=== PATIENT | male | born 1985 | race Two or more races ===

== ENCOUNTER 2016-07-29 17:44 | Emergency (ER) | payer OTHER, BC ==
[2016-07-29 17:55] VITALS: BP 165/107
[2016-07-29] MEDS ORDERED: BACITRACIN ZINC OINTMENT 15 GM TP ONE (18:37)
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
== END 2016-07-29 19:25 | disposition home or self-care (01) ==
LOC: ER 17:44
DX: S93.491A Sprain of other ligament of right ankle, initial encounter (principal); S50.812A Abrasion of left forearm, initial encounter; V89.2XXA Person injured in unspecified motor-vehicle accident, traffic, initial encounter
CPT/HCPCS: 99283; J3490

== ENCOUNTER 2017-12-23 15:31 | Emergency (ER) | payer BC, OTHER ==
--- NOTE | 2017-12-23 15:59 | ER Document Report ---
HPI - HPI Pain Level: 4 Notes: Patient is a 32-year-old male with a history of hypertension and chronic right ankle pain who presents to the ED complaining of swelling and pain to his right knee as well as pain posteriorly feels like a pulled muscle without known injury. Patient states that he has been sleeping in his car for 20-30 minutes at a time over the last few days [place] which is when he started noticing his knee soreness. Patient states that he is now at the point where he cannot completely straighten his leg nor can he flex it to 90 because of the swelling and the pain. Patient states he does have some pain associated with weightbearing. He has not noticed any redness or abscess formation. He has not noticed any purulent discharge or streaks. He is eating and drinking without any difficulties. He is urinating normally and having normal bowel movements. No smoking or IV drug use. Denies any headache, fever, URI, sore throat, chest pain, palpitations, syncope, cough, shortness of breath, wheeze, dyspnea, abdominal pain, nausea/vomiting/diarrhea, urinary retention, dysuria, hematuria, loss of control of bowel or bladder, numbness/tingling, saddle anesthesia, muscle paralysis/weakness, or rash. - ROS Systems Reviewed and Negative: Yes All other systems reviewed and negative Past Medical History - Social History Smoking Status: Never Smoker Family History: Reviewed & Not Pertinent Renal/ Medical History: Denies: Hx Peritoneal Dialysis - Immunizations Hx Diphtheria, Pertussis, Tetanus Vaccination: Yes Vertical Provider Document - CONSTITUTIONAL Agree With Documented VS: Yes Notes: PHYSICAL EXAMINATION: GENERAL: Well-appearing, well-nourished and in no acute distress. LUNGS: Breath sounds clear to auscultation bilaterally and equal. No wheezes rales or rhonchi. HEART: Regular rate and rhythm without murmurs, rubs, gallops. Musculoskeletal: Rt knee: + effusion noted. No obvious swelling, warmth, erythema, ecchymosis, or deformity. LROM to passive/active. Strength 5+/5. N/ V intact distal. + tenderness to the bilateral joint line and posterior knee. I could not adequate assess the ligaments/cartilage due to LROM. No foot drop. Compartments are soft otherwise. Extremities: No cyanosis, clubbing, or edema b/l. Peripheral pulses 2+. Capillary refill less than 3 seconds. Sharlene neg b/l. NEUROLOGICAL: Normal speech, limping gait. see above. PSYCH: Normal mood, normal affect. SKIN: Warm, Dry, normal turgor, no rashes or lesions noted. - INFECTION CONTROL TRAVEL OUTSIDE OF THE [place] IN LAST 30 DAYS: No Course - Re-evaluation Re-evalutation: 12/23/17 15:58 We will obtain an XR and doppler. 12/23/17 19:14 Patient is an afebrile, well-hydrated 32-year-old male who presents to the ED with right knee pain and joint effusion. Vitals are acceptable without any significant tachycardia, tachypnea, or hypoxia. PE is otherwise unremarkable for any neurovascular compromise, obvious tendon/ligament rupture, obvious fracture/dislocation, septic joint, DVT. X-ray and venous Doppler were unremarkable for any acute pathology aside from the joint effusion. No further labs or imaging warranted at this time based on H&P. Crutches and knee immobilizer given. Advised patient that he needs to call orthopedics tomorrow to schedule appointment for further evaluation and management. I will send him home with a prescription for naproxen. Conservative measures otherwise for symptoms. Recheck with your PCM next week as well. Return to the ED with any worsening/concerning symptoms otherwise as reviewed in discharge. Patient is in agreement. Discharge - Discharge Clinical Impression: Right knee pain Qualifiers: Chronicity: acute Qualified Code(s): M25.561 - Pain in right knee Condition: Stable Disposition: HOME, SELF-CARE Instructions: Ice & Elevation ([facility]), Use of Crutches ([facility]), Knee Immobilizing Splint ([facility]) Additional Instructions: Rest, Ice, Compression, Elevation Use crutches/splint as directed Tylenol/ibuprofen as needed Light stretches daily Strength exercises as able Moist heat and massage may help F/u with your PCP in 3-5 days for a recheck Call orthopedics tomorrow to schedule an appointment for further evaluation and management Return to the ED with any worsening symptoms and/or development of fever, headache, chest pain, palpitations, syncope, shortness of breath, trouble breathing, abdominal pain, n/v/d, muscle weakness/paralysis, numbness/tingling, swelling, redness, or other worsening symptoms that are concerning to you. Prescriptions: Naproxen 500 mg PO BID PRN #30 tablet PRN Reason: Forms: Elevated Blood Pressure Referrals: [facility] (JOSE ANTONIO) [Provider Group] - Follow up in 3-5 days
--- NOTE | 2017-12-23 16:40 | RADIOLOGY REPORT (SQ) ---
EXAM DESCRIPTION: KNEE RIGHT 4 VIEWS COMPLETED DATE/TIME: 12/23/2017 4:30 pm REASON FOR STUDY: rt knee pain COMPARISON: None. NUMBER OF VIEWS: Four views. TECHNIQUE: AP, lateral, and both oblique radiographic images acquired of the right knee. LIMITATIONS: None. FINDINGS: MINERALIZATION: Normal. BONES: No acute fracture or dislocation. No worrisome bone lesions. JOINT: No effusion. SOFT TISSUES: There is a moderate joint effusion. OTHER: No other significant finding. IMPRESSION: Joint effusion. No osseous abnormality. Consider MRI if internal derangement is suspec andrei. TECHNICAL DOCUMENTATION: JOB ID: [id number] [employer]- All Rights Reserved Reading location - IP/workstation name: [email or web address]
[2017-12-23] MEDS ORDERED: IBUPROFEN 800 MG TABLET PO ONE (19:17)
[2017-12-23 19:37] VITALS: BP 146/90
--- NOTE | 2017-12-23 19:46 | RADIOLOGY REPORT (SQ) ---
EXAM DESCRIPTION: VENOUS UNILATERAL LOWER COMPLETED DATE/TIME: 12/23/2017 7:33 pm REASON FOR STUDY: Rt posterior knee pain COMPARISON: None. TECHNIQUE: Dynamic and static de jesus scale and color images acquired of the right leg venous system. S elected spectral images acquired with additional compression and augmentation maneuvers. The contrala teral common femoral vein and saphenofemoral junction were also imaged. Images stored on PACS. LIMITATIONS: None. FINDINGS: COMMON FEMORAL: Normal phasicity, compression and augmentation. No visualized echogenic ma terial on de jesus scale. No defects on color images. FEMORAL: Normal compression and augmentation. No visualized echogenic material on de jesus scale. No defe cts on color images. POPLITEAL: Normal compression, augmentation. No visualized echogenic material on de jesus scale. No defec ts on color images. CALF VESSELS: Normal compression, augmentation. No visualized echogenic material on de jesus scale. No de fects on color images. GSV and SSV: Normal compression, augmentation. No visualized echogenic material on de jesus scale. No def ects on color images. ANY DEEP VENOUS INSUFFICIENCY: Not evaluated. ANY EVIDENCE OF POPLITEAL CYST: No. OTHER: No other significant finding. CONTRALATERAL COMMON FEMORAL VEIN AND SAPHENOFEMORAL JUNCTION: Normal phasicity, compression and augmentation. No visualized echogenic material on de jesus scale. No de fects on color images. IMPRESSION: NO EVIDENCE OF DVT OR SVT IN THE RIGHT LEG. TECHNICAL DOCUMENTATION: JOB ID: [id number] [employer]- All Rights Reserved Reading location - IP/workstation name: [email or web address]
== END 2017-12-23 19:35 | disposition home or self-care (01) ==
LOC: ER 15:31
DX: M25.561 Pain in right knee (principal); M25.461 Effusion, right knee; M25.571 Pain in right ankle and joints of right foot; G89.29 Other chronic pain; M79.89 Other specified soft tissue disorders; I10 Essential (primary) hypertension
CPT/HCPCS: 99284; 93971; 73564; L1830